=== PATIENT | male | born 1965 | race Caucasian/White ===

== ENCOUNTER 2017-05-18 19:31 | Emergency (ER) | payer SELFPAY ==
[~2017-05-18] VITALS: Ht 177.8 cm; Wt 68.0 kg
[~2017-05-18 19:31] MED LIST: NYST100010 TOP; SUMA50 PO; TRAZ50TA4 PO
[2017-05-18 19:33] VITALS: BP 139/76; PULSE 74; RESP 16; TEMP 98.2; O2SAT 100
[2017-05-18] MEDS ORDERED: KETOROLAC TROMETHAMINE 60 MG/2 ML (IM) VIAL IM ONE (20:15)
[2017-05-18] MEDS ORDERED: IMIT50TA PO (20:18)
--- NOTE | 2017-05-18 20:28 | RADRPT ---
EXAM DATE/TIME: 05/18/2017 20:10 [place] COMPARISON: No previous studies available for comparison. INDICATIONS : Left foot pain, swelling. MEDICAL HISTORY : None. SURGICAL HISTORY : None. ENCOUNTER: Initial ACUITY: 1 day PAIN SCORE: 0/10 LOCATION: Left foot FINDINGS: Two view examination of the left foot demonstrates no soft tissue swelling, dislocation, or fracture. The calcaneus is intact. Bony mineralization is normal. CONCLUSION: Radiographic appearance of the left foot is within normal limits. John King MD on May 18, 2017 at 20:26 Board Certified Radiologist. This report was verified electronically.
--- NOTE | 2017-05-18 20:34 | PD ---
HPI Chief Complaint: Pain: Acute or Chronic Time Seen by Provider: 20:09 Travel History International Travel<30 days: No Contact w/Intl Traveler<30days: No Traveled to known affect area: No History of Present Illness HPI 52yo M with no significant PMH presents to the ED with c/o left foot pain today. Pt states he had blister in bottom of his first digit for 1 few days and it bursted. 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 Denies any trauma, puncture, fever, chest pain, sob, n/v, abdominal pain, focal weakness or numbness. Did not take any pain medication at home. PFSH Past Medical History Diminished Hearing: No Headaches: Yes Hypertension: Yes Migraines: Yes Tetanus Vaccination: Unknown Past Surgical History Tonsillectomy: Yes Social History Alcohol Use: Yes (occasional) Tobacco Use: No Substance Use: No Allergies-Medications (Allergen,Severity, Reaction): Coded Allergies: cephalexin (Unverified Allergy, Severe, HIVES, 05/18/17) penicillin G (Unverified Allergy, Severe, HIVES, 05/18/17) Reported Meds & Prescriptions Reported Meds & Active Scripts Active Reported Imitrex (Sumatriptan Succinate) 50 Mg Tab 50 Mg PO ONCE PRN If a satisfactory response has not been obtained at 2 hours, a second dose may be administered Review of Systems Except as stated in HPI: all other systems reviewed are Neg Physical Exam Narrative GENERAL: 52yo M not in distress. SKIN: Focused skin assessment warm/dry. HEAD: Atraumatic. Normocephalic. CARDIOVASCULAR: Regular rate and rhythm. No murmur appreciated. RESPIRATORY: No accessory muscle use. Clear to auscultation. Breath sounds equal bilaterally. GASTROINTESTINAL: Abdomen soft, non-tender, nondistended. MUSCULOSKELETAL: Left foot: +unroofed blister in plantar surface of 1st MTP with TTP. No laceration or puncture wounds. No foreign body visualized. No erythema or edema. FROM in all digits and ankle. DP 2+. Sensation intact. NEUROLOGICAL: Awake and alert. No obvious cranial nerve deficits. Motor grossly within normal limits. Normal speech. PSYCHIATRIC: Appropriate mood and affect; insight and judgment normal. Data Data Last Documented VS Vital Signs Date Time Temp Pulse Resp B/P (MAP) Pulse Ox O2 Delivery O2 Flow Rate FiO2 05/18/17 19:33 98.2 74 16 139/76 (97) 100 Room Air Orders Orders Foot, Limited (2vws) (05/18/17 ) Ketorolac Inj (Toradol Inj) (05/18/17 20:15) Ibuprofen (Motrin) (05/18/17 20:45) MDM Medical Decision Making Medical Screen Exam Complete: Yes Emergency Medical Condition: Yes Interpretation(s) Last Impressions Foot X-Ray 05/18/17 0000 Signed Impressions: Service Date/Time: Thursday, May 18, 2017 20:10 - CONCLUSION: Radiographic appearance of the left foot is within normal limits. John King MD Differential Diagnosis Blister pain vs. plantar fasciitis vs. foreign body Narrative Course 52yo M with pain left foot where the blister used to be. Do not see any open wounds. Xray left foot normal. Pt given ibuprofen and pain has improved. Pt ambulating in the ED without any assistance. Return precautions given. VS wnl. Diagnosis Primary Impression: Left foot pain Patient Instructions: General Instructions Departure Forms: Tests/Procedures Additional Instructions: Please follow up with your primary care physician in 3-7 days. Return to the ED if symptoms worsen. Med/Other Pt SpecificInfo: Prescription(s) given Scripts Ibuprofen (Ibuprofen) 400 Mg Tab 400 MG PO Q6H Y for PAIN SCALE 1 TO 4, #20 TAB 0 Refills Prov: Kaley Espinal 05/18/17 Disposition: 01 DISCHARGE HOME Condition: Stable KylieKaley DO May 18, 2017 20:34
[2017-05-18] MEDS ORDERED: IBUPROFEN 600 MG TAB PO ONE (20:45)
[2017-05-18] MEDS ORDERED: IBUP400T20 PO (21:37)
== END 2017-05-18 21:42 | disposition home or self-care (01) ==
LOC: NEPD 19:31
DX: M79.672 Pain in left foot (principal); I10 Essential (primary) hypertension
CPT/HCPCS: 73620; 99283

== ENCOUNTER 2017-06-10 19:19 | Emergency (ER) | payer SELFPAY ==
[~2017-06-10] VITALS: Ht 177.8 cm; Wt 68.0 kg
[~2017-06-10 19:19] MED LIST changes: +IBUP400T20 PO; +IMIT50TA PO; -NYST100010 TOP; -SUMA50 PO; -TRAZ50TA4 PO
[2017-06-10 19:21] VITALS: BP 135/82; PULSE 86; RESP 16; TEMP 98.6; O2SAT 98
[2017-06-10] MEDS ORDERED: DEXAMETHASONE SOD PHOS 20 MG/5 ML VIAL IM ONE (20:00)
[2017-06-10] MEDS ORDERED: CETIRIZINE HCL 10 MG TAB PO ONE (20:00)
[2017-06-10] MEDS ORDERED: CETI10 PO (20:05)
[2017-06-10] MEDS ORDERED: FLUT50SP EACH NARE (20:05)
--- NOTE | 2017-06-10 20:06 | PD ---
HPI Chief Complaint: Respiratory Symptoms Time Seen by Provider: 19:58 Travel History International Travel<30 days: No Contact w/Intl Traveler<30days: No Traveled to known affect area: No History of Present Illness HPI Patient is a 52-year-old male presenting to the emergency department stating he feels as if he cannot breathe. Patient initially could not quantify how long this has been going on, then stated with the weather change he feels as if he has mucus in his throat that he cannot cough up. Eyes any wheezing, fevers, chills, headache, shortness of breath. He denies any pain. He denies any history of asthma or COPD, he quit smoking in the 90s. PFSH Past Medical History Diminished Hearing: No Headaches: Yes Hypertension: Yes Migraines: Yes Tetanus Vaccination: Unknown Influenza Vaccination: No Past Surgical History Tonsillectomy: Yes Social History Alcohol Use: Yes (OCCASSIONALLY) Tobacco Use: No Substance Use: No Allergies-Medications (Allergen,Severity, Reaction): Coded Allergies: cephalexin (Unverified Allergy, Severe, HIVES, 05/18/17) penicillin G (Unverified Allergy, Severe, HIVES, 05/18/17) Reported Meds & Prescriptions Reported Meds & Active Scripts Active Ibuprofen 400 Mg Tab 400 Mg PO Q6H PRN Reported Imitrex (Sumatriptan Succinate) 50 Mg Tab 50 Mg PO ONCE PRN If a satisfactory response has not been obtained at 2 hours, a second dose may be administered Review of Systems Except as stated in HPI: all other systems reviewed are Neg HENT: Positive: Congestion Cardiovascular: No: Chest Pain or Discomfort Respiratory: No: Shortness of Breath, Wheezing Physical Exam Narrative GENERAL: Well-developed, well-nourished, alert male. Resting in no acute distress. SKIN: Warm and dry. HEAD: Atraumatic. Normocephalic. EYES: Pupils equal and round. No scleral icterus. No injection or drainage. ENT: No nasal bleeding or discharge. Mucous membranes pink and moist. Posterior pharynx a cobblestone appearance, no lymphadenopathy, no enlarged tonsils. Airway is patent. NECK: Trachea midline. No JVD. CARDIOVASCULAR: Regular rate and rhythm. RESPIRATORY: No accessory muscle use. Clear to auscultation. Breath sounds equal bilaterally. No wheezes, rhonchi, rales noted. GASTROINTESTINAL: Abdomen soft, non-tender, nondistended. Hepatic and splenic margins not palpable. MUSCULOSKELETAL: Extremities without clubbing, cyanosis, or edema. No obvious deformities. NEUROLOGICAL: Awake and alert. No obvious cranial nerve deficits. Motor grossly within normal limits. Five out of 5 muscle strength in the arms and legs. Normal speech. PSYCHIATRIC: Appropriate mood and affect; insight and judgment normal. Data Data Last Documented VS Vital Signs Date Time Temp Pulse Resp B/P (MAP) Pulse Ox O2 Delivery O2 Flow Rate FiO2 06/10/17 19:56 22 100 06/10/17 19:21 98.6 86 135/82 (99) Room Air Orders Orders Cetirizine (Zyrtec) (06/10/17 20:00) Dexamethasone Inj (Decadron Inj) (06/10/17 20:00) MDM Medical Decision Making Medical Screen Exam Complete: Yes Emergency Medical Condition: Yes Interpretation(s) Vital Signs Date Time Temp Pulse Resp B/P (MAP) Pulse Ox O2 Delivery O2 Flow Rate FiO2 06/10/17 19:56 22 100 06/10/17 19:21 98.6 86 16 135/82 (99) 98 Room Air Differential Diagnosis Bronchitis versus pneumonia versus allergic rhinitis versus URI versus other Narrative Course Patient is a 52-year-old male presenting for evaluation of essentially congestion. On exam patient was noted to have cobblestoning appearance to his posterior pharynx. He reported being unable to cough up mucus in his throat. Exam appears most consistent with allergic rhinitis. Patient will be given injection of dexamethasone and a dose of cetirizine here. He was encouraged to take cetirizine daily as it works best with continued use. He was reassured at this time that his exam findings do not appear consistent with an infection. Patient verbalized understanding of instructions. He was encouraged to obtain [id number] nasal wash and use as directed. He was encouraged to come back to emergency department for any new or worsening symptoms. He verbalized understanding of instructions. Patient stable for discharge. Additionally patient's last respiratory rate was charted at 22, patient was getting agitated regarding having to answer questions over and over again. Patient is not tachypneic and is resting comfortably. Diagnosis Primary Impression: Allergic rhinitis Qualified Codes: J30.9 - Allergic rhinitis, unspecified Referrals: [facility] Patient Instructions: Allergic Rhinitis (ED), General Instructions Additional Instructions: Follow-up with the [facility] Take medications as directed Return to emergency department for any new or worsening symptoms Med/Other Pt SpecificInfo: Prescription(s) given Scripts Cetirizine (Cetirizine) 10 Mg Tab 10 MG PO DAILY for Allergies, #30 TAB 0 Refills Prov: Vicki George 06/10/17 Fluticasone Nasal [place] (Fluticasone Nasal [place]) 50 Mcg/Act Naspr 50 MCG EACH NARE BID for Allergy Management, #1 BOTTLE 0 Refills 50 mcg/spray Prov: Vicki George 06/10/17 Disposition: 01 DISCHARGE HOME Condition: Stable Vicki George Jun 10, 2017 20:06
== END 2017-06-10 20:32 | disposition home or self-care (01) ==
LOC: NEPK 19:19
DX: J30.9 Allergic rhinitis, unspecified (principal); Z87.891 Personal history of nicotine dependence
CPT/HCPCS: 96372; 99284; J1100